=== PATIENT | male | born 1990 | race Caucasian/White ===

== ENCOUNTER 2017-03-15 18:23 | Emergency (ER) | payer BC ==
[~2017-03-15] VITALS: Ht 185.4 cm; Wt 88.4 kg
[2017-03-15 18:26] VITALS: TEMP 99.4
[2017-03-15] MEDS ORDERED: NORCO 325 MG-51 TAB PO (20:54)
[2017-03-15] MEDS ORDERED: BACTRIM DS 8001 TAB PO (20:54)
[2017-03-15 21:01] VITALS: BP 110/66; PULSE 77
== END 2017-03-15 21:18 | disposition home or self-care (01) ==
LOC: COL.ER 18:23
DX: L02.214 Cutaneous abscess of groin (principal)

== ENCOUNTER 2017-03-24 11:05 | Emergency (ER) | payer BC ==
[~2017-03-24] VITALS: Ht 182.9 cm; Wt 88.6 kg
[~2017-03-24 11:05] MED LIST: BACTRIM DS 8001 TAB PO; NORCO 325 MG-51 TAB PO
[2017-03-24 11:06] VITALS: TEMP 100.4
[2017-03-24 12:04] LABS: HEMATOCRIT 39.8 % (42.0-52.0); HEMOGLOBIN 13.7 g/dl (13.5-18.0); MEAN CELL VOLUME 89 fl (80.0-100.0); MEAN CORPUSCULAR HEMOGLOBIN 31 pg (27.0-31.0); MEAN CORPUSCULAR HGB CONC 34 g/dl (33.0-37.0); MEAN PLATELET VOLUME 10.9 fl (7.4-10.4); PLATELET COUNT 148 K/mm3 (130-400); RED BLOOD COUNT 4.47 M/mm3 (4.20-5.60); REDCELL DISTRIBUTION WIDTH-CV 11.9 % (11.5-14.5); WHITE BLOOD COUNT 5.5 K/mm3 (4.8-10.8)
[2017-03-24 12:07] LABS: ADD PATHOLOGY DIFF REVIEW NO
[2017-03-24 12:22] LABS: ADJUSTED CALCIUM 8.5 mg/dL (8.4-10.2); ALBUMIN 4.1 gm/dL (3.5-5.0); BILIRUBIN,TOTAL 0.5 mg/dL (0.0-1.0); C-REACTIVE PROTEIN 2.4 mg/dL (0.0-0.9); CALCIUM 8.6 mg/dL (8.4-10.2); CREATININE, serum 1.04 mg/dL (0.66-1.25); MAGNESIUM 1.7 mg/dL (1.6-2.3); PHOSPHOROUS 3.5 mg/dL (2.5-4.5); POTASSIUM 3.9 mmol/L (3.4-5.0); TOTAL PROTEIN 7.1 gm/dL (6.4-8.2)
[2017-03-24 12:29] LABS: BAND 53 % (0-10); NEUTROPHILS 27 % (42.0-75.2); TOTAL CELLS COUNTED 100
[2017-03-24 12:30] LABS: PLATELET ESTIMATE NORMAL (NORMAL)
[2017-03-24 13:17] LABS: ERYTHROCYTE SEDIMENTATION RATE 5 mm/hr (0-15)
[2017-03-24 13:21] VITALS: BP 107/54
[2017-03-24] MEDS ORDERED: DOXYCYCLINE 10100 MG PO (14:45)
[2017-03-24] MEDS ORDERED: PREDNISONE20 MG PO (14:45)
[2017-03-24 15:05] VITALS: PULSE 77
== END 2017-03-24 15:05 | disposition home or self-care (01) ==
LOC: COL.ER 11:05
PROVIDERS: Emergency Medicine
DX: L27.0 Generalized skin eruption due to drugs and medicaments taken internally (principal); T37.0X5A Adverse effect of sulfonamides, initial encounter; R00.0 Tachycardia, unspecified
CPT/HCPCS: J1200; J2405; J2930; J7030

== ENCOUNTER 2018-03-23 20:58 | Emergency (ER) | payer OTHER, BC ==
[~2018-03-23] VITALS: Ht 182.9 cm; Wt 104.5 kg
[~2018-03-23 20:58] MED LIST changes: +DOXYCYCLINE 10100 MG PO; +PREDNISONE20 MG PO
[2018-03-23 21:05] VITALS: BP 135/81; TEMP 98.1
[2018-03-23] MEDS ORDERED: FLEXERIL 1010 MG/TAB PO (21:46)
[2018-03-23 21:57] VITALS: PULSE 62
== END 2018-03-23 21:57 | disposition home or self-care (01) ==
LOC: COL.ER 20:58
DX: S16.1XXA Strain of muscle, fascia and tendon at neck level, initial encounter (principal); V40.6XXA Car passenger injured in collision with pedestrian or animal in traffic accident, initial encounter
CPT/HCPCS: J1885; J2360

== ENCOUNTER 2018-04-22 00:02 | Emergency (ER) | payer BC ==
[~2018-04-22] VITALS: Ht 182.9 cm; Wt 95.5 kg
[~2018-04-22 00:02] MED LIST changes: +FLEXERIL 1010 MG/TAB PO
[2018-04-22 00:14] VITALS: BP 123/77; PULSE 92; TEMP 97.8
[2018-04-22] MEDS ORDERED: FLEXERIL 1010 MG/TAB PO (01:03)
== END 2018-04-22 01:09 | disposition home or self-care (01) ==
LOC: COL.ER 00:02
DX: S39.012A Strain of muscle, fascia and tendon of lower back, initial encounter (principal); Z98.890 Other specified postprocedural states; X50.0XXA Overexertion from strenuous movement or load, initial encounter